=== PATIENT | female | born 1955 | race American Indian/Alaskan Native ===

== ENCOUNTER 2020-01-26 21:07 | Emergency (ER) | payer MEDICARE ==
[~2020-01-26 21:07] MED LIST: CALCIUM CHLORIDE 1,000 MG/10 ML SYRINGE IV ONE; EPINEPHrine 1 MG/10 ML SYRINGE ONE; MAGNESIUM SULFATE 1 GM/2ML (4 MEQ/1ML) INJ ONE; SODIUM BICARB 8.4% 50 MEQ/50 ML SYRINGE IV ONE
--- NOTE | 2020-01-26 21:19 | Emergency Department Report ---
ED CPR HPI - General Chief Complaint: Cardiac Arrest/CPR Stated Complaint: CARDIAC ARREST Time Seen by Provider: 01/26/20 21:19 Source: EMS (Verbal report received from emergency medical services. EMS documentation not available at time of chart dictation ), RN notes reviewed Mode of arrival: Stretcher Limitations: Altered Mental Status, Physical Limitation - History of Present Illness Initial Comments: The patient was evaluated in the emergency department for symptoms described in the history of present illness. He/she was evaluated in the context of the global COVID-19 pandemic, which necessitated consideration that the patient might be at risk for infection with the virus that causes COVID-19. Institutional protocols and algorithms that pertain to the evaluation of patients at risk for COVID-19 are in a state of rapid change based on information released by regulatory bodies including the CDC and federal and state organizations. These policies and algorithms were followed during the patient's care in the emergency department. Please note that these policies, procedures and recommendations changed on a rapid basis. Patient is a 64-year-old female. She is not known to myself previously. Patient is brought to the hospital by emergency medical services as an out of hospital cardiac arrest. Patient apparently found down at home by family member/bystanders, apparently family started CPR and contacted emergency medical services. EMS placed supraglottic/Jeff airway, initiated high-quality CPR, gave appropriate ACLS medications, epinephrine x4, and reportedly defibrillated the patient multiple times. EMS reports that patient is pulseless for approximately 30 minutes, prior to arrival to this emergency room. At no point in time in the field the patient developed return of spontaneous circulation. Upon arrival to this emergency room, pupils are midpoint, and do not react to light. Patient does not have a shockable rhythm in this emergency room. High-quality CPR was continued, and standard ACLS interventions are continued. Unfortunately, we are not able to obtain pulses or return of spontaneous circulation. Ultrasound shows no arterial waveform or pulses on Doppler interrogation, and cardiac ultrasound shows no coordinated ventricular activity In spite of vigorous and prolonged resuscitation efforts, pulses are not able to be reobtained, and resuscitation efforts are terminated secondary to medical futility. The patient's family is subsequently informed. Complaint: found unresponsive -: minute(s) Place: home Bystander CPR Performed: Yes Initial Findings in the Field: VTACH/VFIB Treatments Prior to Arrival: other airway device, chest compressions, defribrillated shocks #, epinephrine mgs # - Related Data Allergies Allergy/AdvReac Type Severity Reaction Status Date / Time No Known Allergies Allergy Unverified 01/26/20 21:54 ED Review of Systems ROS: Stated complaint: CARDIAC ARREST Other details as noted in HPI Comment: Unobtainable due to pts medical conditions ED Physical Exam - General Limitations: Altered Mental Status, Physical Limitation General appearance: obtunded, obese - Head Head exam: Present: atraumatic, normocephalic - Eye Eye exam: Present: normal appearance, other (Pupils midpoint and do not react to light) - ENT ENT exam: Present: normal exam, mucous membranes moist, other (Supraglottic airway noted in place) - Neck Neck exam: Present: normal inspection - Respiratory Respiratory exam: Absent: normal lung sounds bilaterally, respiratory distress, wheezes, rales, rhonchi, stridor - Cardiovascular Cardiovascular Exam: Present: other (Patient is pulseless). Absent: regular rate, normal rhythm, systolic murmur, diastolic murmur, rubs, gallop - GI/Abdominal GI/Abdominal exam: Present: soft. Absent: distended, tenderness, guarding, rebound, rigid - Extremities Exam Extremities exam: Present: normal inspection, full ROM. Absent: calf tenderness - Back Exam Back exam: Present: normal inspection - Neurological Exam Neurological exam: Present: altered (GCS of 3, nonverbal) - Skin Skin exam: Present: warm, dry, intact, normal color. Absent: rash ED Medical Decision Making - Medical Decision Making Differential diagnosis, including but not limited to: Intracranial hemorrhage, pulmonary embolism, myocardial infarction Critical care attestation.: If time is entered above; I have spent that time in minutes in the direct care of this critically ill patient, excluding procedure time. ED Disposition Clinical Impression: Cardiac arrest Disposition: DC-20 Is pt being admited?: No Does the pt Need Aspirin: No Condition: Undetermined
== END 2020-01-27 00:38 ==
LOC: ED 21:07
DX: I46.9 Cardiac arrest, cause unspecified (principal)
CPT/HCPCS: 92950; 99285; J0171; J3475